=== PATIENT | female | born 1965 | race Caucasian/White ===

== ENCOUNTER 2017-08-27 18:24 | Emergency (ER) | payer OTHER ==
--- NOTE | 2017-08-27 20:17 | EDPHY ---
HPI/HX/ROS/PE/MDM Narrative: CHIEF COMPLAINT: Right-sided pain HISTORY OF PRESENT ILLNESS: The patient is a 51 y/o female complaining of right-sided back pain which started abruptly when she was moving a patient. This occurred this morning. Pain was localized to the low right paraspinal region, just lateral to L4. Over the course of the day and the patient is now reporting that the pain seems to radiate all way up into her right shoulder and right neck as well as down her right leg. She has had no weakness in the leg, no numbness or tingling, no electric shooting sensations. No bowel or bladder difficulties. Patient reports she did not injure her thoracic spine her cervical spine with feels like the discomfort in her back is causing spasm and radiation of pain. No fever, chills, chest pain, shortness of breath, palpitations, vomiting, diarrhea, urinary complaints, headache, lightheadedness. REVIEW OF SYSTEMS: Aside from elements discussed in the HPI, a comprehensive 10-point review of systems was reviewed and is negative. PAST MEDICAL HISTORY: Spinal injections, whiplash SOCIAL HISTORY: Nurse at [employer], lives in [place], VITAL SIGNS: Reviewed by me GENERAL: Well-developed, well-nourished, laying on right side. Hurts discomfort in her back when moving. HEENT: Atraumatic. Benign exam. Neck: supple, no tenderness palpation, full range of motion. LUNGS: Clear to auscultation bilaterally, no wheezes, rhonchi or rales. CARDIAC: Regular rate and rhythm, no rubs, murmurs or gallops. ABDOMEN: Soft, nontender, nondistended, bowel sounds normal. BACK: Lateral to L4-5 point tenderness to palpation. No CVA tenderness. EXTREMITIES: No trauma. No edema. Range of motion is normal throughout. NEURO: Neurological exam: Straight leg raise test is positive on the right with pain radiating into the buttocks and posterior right thigh. Hip flexion, knee extension, knee flexion, dorsiflexion and plantar flexion are 5/ 5 bilaterally. EHL 5 over 5. Sensation is intact to light touch throughout. 2+ knee and ankle jerk bilaterally. Vascular exam: Dorsalis pedis and posterior tibial pulses are intact. Brisk capillary refill. SKIN: Warm and dry, no rash. PSYCHIATRIC: Normal mentation, no agitation. Portions of this note were transcribed by a healthcare or medical. I personally performed a history, physical exam, medical decision making, and confirmed accuracy of information the transcribed note. ED Course: The patient is a 51 y/o female presenting with right-sided back pain radiating to her shoulder and leg secondary to lifting a patient at work at 09:45, 11 hours ago. On exam she has lateral to L4-5 point tenderness to palpation. I do not believe patient needs emergent MRI imaging studies but suspect an injury at the L4-L5 or L5-S1 spinal level. Patient will be treated with conservative management. 600mg PO Gabapentin, 15mg IM Toradol, and lidocaine patch administered. Patient is driving herself, so she was discharged with a prepack of Flexeril to start taking when she gets home. She was given a prescription as well as a prepack for short course of narcotics as well as a Medrol Dosepak. She will follow up with workman's compensation before she returns to work in 3 days. Return precautions discussed at length. MDM: After history was obtained and physical exam performed, the differential for back pain was considered including but not limited to muscular pain, herniated disc, spine fracture, intra-abdominal causes, and urinary tract infection. - Data Points Medications Given: Discontinued Medications Hydrocodone Bitart/Acetaminophen ([place] 5/325mg Prepack#6) 1 btl TAKEHOME EDNOW ONE Stop: 08/27/17 21:10 Last Admin: 08/27/17 21:28 Dose: 1 btl Gabapentin (Neurontin) 600 mg PO EDNOW ONE Stop: 08/27/17 21:08 Last Admin: 08/27/17 21:28 Dose: 600 mg Ketorolac Tromethamine (Toradol) 15 mg IM EDNOW ONE Stop: 08/27/17 21:08 Last Admin: 08/27/17 21:28 Dose: 15 mg Miscellaneous Medication (Icy Hot Lidocaine/Menthol 4%/1% Patch) 1 patch TD EDNOW ONE Stop: 08/27/17 21:08 Last Admin: 08/27/17 21:27 Dose: 1 patch General Time Seen by Provider: 08/27/17 20:11 Initial Vital Signs: Initial Vital Signs Temperature (C) 36.5 C 08/27/17 18:30 Heart Rate 66 08/27/17 18:30 Respiratory Rate 17 08/27/17 18:30 Blood Pressure 139/74 H 08/27/17 18:30 O2 Sat (%) 98 08/27/17 18:30 O2 Delivery Mode Room Air Allergies/Adverse Reactions: No Known Allergies Allergy (Unverified 08/27/17 18:29) Home Medications: Medication Instructions Recorded Cyclobenzaprine [Flexeril 10 MG 10 mg PO TID PRN #20 tab 08/27/17 (RX)] methylPREDNISolone [Medrol Dose 4 mg PO DAILY #1 each 08/27/17 Nikhil] Departure - Departure Disposition: Home, Routine, Self-Care Clinical Impression: Low back pain Qualifiers: Chronicity: acute Back pain laterality: right Sciatica presence: without sciatica Qualified Code(s): M54.5 - Low back pain Condition: Good Instructions: Hydrocodone/Acetaminophen (By mouth), Lidocaine (On the skin), Low Back Strain (ED), Acute Low Back Pain (ED), Lower Back Exercises (ED) Additional Instructions: Mainstay of therapy is rest, ice, anti-inflammatories, pain medications, and muscle relaxants as much as possible. Apply ice for 20-30 minutes every 2-3 hours for the next 48 hours. After 48 hours, a heating pad or hot tub may feel better. Use ibuprofen 600 mg every 6-8 hours on a regular basis to provide pain relief and anti-inflammatory effects. Take medrol dose pack as prescribed. Use Flexeril 10 mg up to 3 times a day for muscle spasm. Okay to take Hydrocodone as prescribed for severe pain. You may purchase lidocaine you may obtain lidocaine patches [id number]. Followup with the physician as directed. Consider physical therapy or chiropractic followup. Return to the emergency department or seek care urgently if you have worsening pain, pain radiating into the legs, weakness, numbness or tingling, difficulties with bowel or bladder, or other concerns. You may return to work after you are seen by workman's comp at [facility]. Referrals: [facility],. [Clinic] - As per Instructions Work Comp Referral [facility] [Outside] - As per Instructions Stand Alone Forms: Work Excuse Prescriptions: Cyclobenzaprine [Flexeril 10 MG (RX)] 10 mg PO TID PRN #20 tab PRN Reason: Muscle Spasms methylPREDNISolone [Medrol Dose Nikhil] 4 mg PO DAILY #1 each Report Scribed for: Leanna Pulido Report Scribed by: Kiley Contreras Date of Report: 08/27/17 Time of Report: 20:17
[2017-08-27] MEDS ORDERED: GABAPENTIN 300 MG CAP PO ONE (21:07)
[2017-08-27] MEDS ORDERED: KETOROLAC 15 MG/1 ML SDV IM ONE (21:07)
[2017-08-27] MEDS ORDERED: LIDOCAINE 4%/MENTHOL 1% PATCH TD ONE (21:07)
[2017-08-27] MEDS ORDERED: HYDROCOD/APAP 5/325 PREPACK#6 BTL TAKEHOME ONE (21:09)
[2017-08-27 21:32] VITALS: BP 119/74; PULSE 55; RESP 16; TEMP 98.2; O2SAT 99
[2017-08-28] MEDS ORDERED: PATCH REMOVAL 1 EA PATCH TD SCH (21:00)
== END 2017-08-27 21:32 | disposition home or self-care (01) ==
DX: M54.5 Low back pain (principal)
CPT/HCPCS: J1885